=== PATIENT | female | born 1995 | race Caucasian/White ===

== ENCOUNTER 2023-01-11 17:01 | Emergency (ER) | payer MEDICAID ==
[~2023-01-11] VITALS: Ht 162.6 cm; Wt 64.0 kg
[2023-01-11 17:06] VITALS: BP 115/73
[2023-01-11] MEDS ORDERED: OFLO5DRO EACHEYE (18:03)
== END 2023-01-11 18:39 | disposition home or self-care (01) ==
LOC: ER 17:22
DX: H10.9 Unspecified conjunctivitis (principal)
CPT/HCPCS: 99281; 99283